=== PATIENT | male | born 1940 | race Caucasian/White ===

== ENCOUNTER 2019-01-21 09:53 | Inpatient (IN) ==
[2019-01-21 10:30] LABS: Hematocrit 37.2 % (42.0-52.0); Hemoglobin 13.3 gm/dL (13.5-18.0); Mean Cell Volume 85.1 fl (78-100); Mean Corpuscular Hemoglobin 30.4 pg (27-31); Mean Corpuscular Hgb Conc 35.8 g/dl (32-36); Mean Platelet Volume 9.8 fl (8-11.3); Neutrophil # 8.2 K/mm3 (1.3-6.0); Neutrophil % 74.7 % (42-75.0); Platelet Count 272 K/mm3 (150-450); Red Blood Count 4.37 M/mm3 (4.7-6.0); Red Cell Distribution Width 12.3 % (11.5-14.0)
--- NOTE | 2019-01-21 10:32 | ERNOTE ---
Abdominal HPI - Narrative Date of Service: 01/21/19 - General Chief Complaint: Abdominal Pain Time Seen by Provider: 01/21/19 10:24 Source: patient Exam Limitations: no limitations - Immun/Allergies/Home Medications Immunizatons: IMMUNIZATION HX Immunizations Up to Date No History of Influenza Vaccine No Hx Pneumococcal Vaccination No Allergies/Adverse Reactions: Allergies No Known Drug Allergies Allergy (Verified 03/12/16 09:45) Home Medications: HOME MEDICATIONS Meloxicam 15 mg PO DAILY 07/14/13 [Last Taken 07/08/14 21:00] Chlorthalidone [Hygroton] 25 mg PO DAILY 01/01/16 [Last Taken Unknown] HYDROcodone/ACETAMINOPHEN [Hydrocodon-Acetaminophn 10-325] 2 each PO BID 01/01/16 [Last Taken Unknown] Quinapril HCl [Accupril] 40 mg PO DAILY 01/01/16 [Last Taken Unknown] amLODIPine BESYLATE [Norvasc] 10 mg PO DAILY 01/01/16 [Last Taken Unknown] - Pain Score Pain Score #1 Pain Score: 0 - History of Present Illness Narrative: The patient is a 78 year old male who presents for persistent nausea and weakness which has been present for 1 week. There are associated symptoms of fatigue, near syncope and inability to eat. The patient denies pain. There are no alleviating factors. There are aggravating factors of oral intake. Previous treatments have included: none. The past medical history includes: HTN, DJD and sciatica. The social history is negative. The patient has had ill contacts at home from grandchildren with exposure to strep and influenza. Pat ient states he had bowel movement 2 days ago which was soft. Patient states he has been unable to eat due to foul taste of food and has only been able to tolerate sips of water or milk. Review of Systems - Review of Systems Constitutional: Present: chills, fatigue. Absent: fever EYE: Present: no symptoms reported ENT: Present: sore throat. Absent: ear pain, nasal drainage Respiratory: Present: no symptoms reported. Absent: shortness of breath, cough Cardiology: Present: no symptoms reported. Absent: chest pain Gastrointestinal/Abdominal: Present: nausea, eating less, drinking less. Absent: vomiting, diarrhea, abdominal pain Genitourinary: Present: decreased urinary output. Absent: dysuria Musculoskeletal: Present: no symptoms reported Skin: Present: no symptoms reported. Absent: rash Neurological: Present: headache, dizziness/light-headedness Endocrine: Present: no symptoms reported All Other Systems: All systems neg except as marked Medical History (Last Reviewed 01/21/19 @ 12:28 by MARY ELLEN Ray) Degenerative joint disease (DJD) of lumbar spine Hypertension Sciatic leg pain Surgical History: Surgical History (Last Reviewed 01/21/19 @ 12:28 by MARY ELLEN Ray) H/O hernia repair Social History: Preferred Language Ivorian Do you have any mosque or No cultural preference? Smoking Status Never smoker Have you smoked in the past 12 No months Do you dip or chew tobacco No Psych History No pertinent hx Drug Use none No Social History Section defined Physical Exam - Physical Exam General Appearance: Present: wd/wn, alert, mild distress, other - malaised Head Exam: Present: normal inspection, no evidence of injury Eye Exam: Normal inspection: bilateral, PERRL: bilateral Ears, Nose, Throat: Present: normal ENT inspection, pharyngeal erythema. Absent: pharyngeal swelling Neck: Present: normal inspection, nontender Respiratory: Present: no respiratory distress, normal breath sounds, no accessory muscle use, lungs clear Cardiovascular/Chest: Present: no murmur, tachycardia Gastrointestinal/Abdominal: Present: nontender, nondistended, soft, no organomegaly, abnormal bowel sounds - hypoactive Extremity Exam: Present: no edema Neurological Exam: Present: alert, oriented, normal mood/affect, no motor/sensory deficits Skin Exam: Present: normal color, warm/dry Progress - Date and Time Seen: Date and Time: 01/21/19 14:06 Case discussed with and will admit for acute with hyponatremia, hypokalemia and nausea. - Results and Orders Patient's Lab Results:: I have reviewed the patient's lab results. - Vital Signs Patient's Vital Signs:: I have reviewed the patient's vital signs. Vital Signs: Vital Signs 01/21/19 10:01 Temperature 36.8 C Pulse Rate 100 Respiratory Rate 18 Blood Pressure 121/81 O2 Sat by Pulse Oximetry 95 - EKG EKG #1 EKG: NSR EKG read: Reviewed by me - X-Ray X-Ray #1 X-Ray: chest Interpretation: Reviewed by me X-ray Comments: No acute cardiopulmonary abnormalities, chronic fibrotic changes. X-Ray #2 X-Ray: abdomen Interpretation: Reviewed by me X-ray Comments: Abnormal bowel gas pattern with dilated bowel loops. Concern for bowel obstruction. - CT/Ultrasound CT/Ultrasound Narrative: IMPRESSION: 1. No acute intra-abdominal or pelvic process Electronically signed by Lexa Geronimo M.D.. - Progress/Reassessment Chief Complaint: Abdominal Pain Departure Clinical Impression: Hyponatremia, Hypokalemia, Nausea - Departure Disposition: Still a patient Condition: Good
[2019-01-21 10:47] LABS: Albumin * 3.5 gm/dl (3.4-5.0); Anion Gap 13.2 mmol/L (6.8-13.8); Bilirubin, Total 0.5 mg/dL (0.0-1.1); CRP 1.1 mg/dL (0.0-0.9); Ca. Corrected For Albumin 9.3 mg/dL (8.4-10.2); Calcium * 9.2 mg/dL (7.9-10.9); Carbon Dioxide 26.8 mmol/L (24-32.6); Total Protein 7.6 gm/dL (6.2-8.2)
[2019-01-21] MEDS ORDERED: NORMAL SALINE 1,000 ML IV ONE (10:50)
[2019-01-21] MEDS: POTASSIUM CHLORIDE IN WATER 100 ML IV SCH ×4 (11:15→16:04)
[2019-01-21] MEDS ORDERED: DIATRIZOATE MEGLUMINE, SODIUM 30 ML BTL PO ONE (11:26)
[2019-01-21] MEDS ORDERED: ONDANSETRON HCL/PF 2 MG/ML VIAL IV ONE (12:16)
[2019-01-21] MEDS: MORPHINE SULFATE 2 MG/ML DISP.SYRIN IV ONE ×2 (12:31→15:02)
[2019-01-21 14:27] LABS: Anion Gap 11.4 mmol/L (6.8-13.8); BUN/Creatinine Ratio 15.4 (9.0-21.6); Calcium * 8.9 mg/dL (7.9-10.9); Carbon Dioxide 27.9 mmol/L (24-32.6); Potassium 3.3 mmol/L (3.4-4.6)
[2019-01-21] MEDS ORDERED: MORPHINE SULFATE 2 MG/ML DISP.SYRIN IV ONE (14:49)
[2019-01-21] MEDS ORDERED: HYDROCODONE PO SCH (15:00)
[2019-01-21] MEDS ORDERED: [UNRECOGNIZED DRUG - OTHER] PO SCH (15:00)
[2019-01-21] MEDS ORDERED: ACETAMINOPHEN PO SCH (15:00)
[2019-01-21] MEDS: NORMAL SALINE 1,000 ML IV PRN (16:06)
--- NOTE | 2019-01-21 17:02 | HP ---
Chief Complaint - Chief Complaint Date of Service: 01/21/19 Time of Service: 16:59 Chief Complaint: dizziness, anorexia History of Present Illness: Patient with past medical history of hypertension presented to the ER after 2 weeks of dizziness and inability to maintain p.o. nutrition. He has been unable to tolerate much by mouth. He has had family members with influenza and strep, but he tested negative. Sodium was found to be 118 in the ED. He denies signs of infection, including no fevers, sore throat, chest pain shortness of breath, diarrhea, skin changes, dysuria. He does not drink alcohol. At the time of my exam, he has received a liter bolus, some potassium via IV, and maintenance normal saline. He reports feeling better than on admission, but still does not feel like he is at his baseline. Medical History (Last Reviewed 01/21/19 @ 15:27 by Natalie Root RN) Degenerative joint disease (DJD) of lumbar spine Hypertension Sciatic leg pain Surgical History: Surgical History (Last Reviewed 01/21/19 @ 15:27 by Natalie Root RN) H/O hernia repair Family History: Family History (Last Updated 01/21/19 @ 14:41 by Natalie Root RN) Mother Myocardial infarction Father Mouth cancer Brother Cirrhosis Brother Stomach cancer Social History: Patient Lives/Resources Home Utilized Preferred Language Icelandic Do you have any rastafari or No cultural preference? Smoking Status Never smoker Have you smoked in the past 12 No months Do you dip or chew tobacco No Psych History No pertinent hx Drug Use none No Social History Section defined Review Of Systems (GEN) - Review of Systems Generalized/Overall Review: Absent: Fever Respiratory: Absent: Cough, Shortness of Breath, Wheezing Cardiac: Absent: Chest Pain, Edema Abdominal: Present: Nausea. Absent: Vomiting, Diarrhea Genitourinary: Absent: Dysuria Neurological: Present: Weakness. Absent: Seizure Skin: Absent: Rash Immunizations: IMMUNIZATION HX Immunizations Up to Date No History of Influenza Vaccine No Hx Pneumococcal Vaccination No Allergies/Adverse Reactions: Allergies Allergy/AdvReac Type Severity Reaction Status Date / Time No Known Drug Allergies Allergy Verified 03/12/16 09:45 Home Medications: HOME MEDICATIONS Meloxicam 15 mg PO DAILY 07/14/13 [Last Taken 07/08/14 21:00] Chlorthalidone [Hygroton] 25 mg PO DAILY 01/01/16 [Last Taken Unknown] HYDROcodone/ACETAMINOPHEN [Hydrocodon-Acetaminophn 10325] 2 each PO BID 01/01/16 [Last Taken Unknown] Quinapril HCl [Accupril] 40 mg PO DAILY 01/01/16 [Last Taken Unknown] amLODIPine BESYLATE [Norvasc] 10 mg PO DAILY 01/01/16 [Last Taken Unknown] Exam - Exam Vital Signs: Vital Signs - Last Taken Temp 37 C 01/21/19 14:27 Pulse 84 01/21/19 14:53 Resp 16 01/21/19 14:27 BP 138/55 01/21/19 14:27 Pulse Ox 96 01/21/19 14:27 Constitutional: Present: Alert, Oriented x3, Cooperative, Elderly ENT Exam: Present: hard of hearing, dry mucous membranes Respiratory: Present: lungs clear, no respiratory distress Cardiovascular/Chest: Present: regular rate, rhythm, no murmur Abdomen: Present: soft, nondistended Extremity: Absent: lower extremity edema Neurologic: Present: normal mood/affect Eye contact: Present: cooperative Diagnostic Studies: Abnormal Lab Results 01/21/19 01/21/19 01/21/19 Range/Units 10:23 10:23 10:23 WBC 11.0 H (4.0-10.5) K/mm3 RBC 4.37 L (4.7-6.0) M/mm3 Hgb 13.3 L (13.5-18.0) gm/dL Hct 37.2 L (42.0-52.0) % Immature Gran % (Auto) 2.80 H (0.001-0.429) % Immature Gran # (Auto) 0.31 H (0.000-0.0310) K/mm3 Lymphocytes % 12.3 L (20-51) % Monocytes % 9.2 H (0.0-9) % Neutrophils # 8.2 H (1.3-6.0) K/mm3 Lymphocytes # 1.35 L (1.5-3.5) k/mm3 Sodium 118 L* D (132-142) mmol/L Plasma Sodium 119 L* (130-142) mmol/L Potassium 3.0 L (3.4-4.6) mmol/L Chloride 81 L (97-106) mmol/L Est GFR (Non-Af Amer) 57 L D (60-130) mL/min Random Glucose 135 H (70-110) mg/dL C-Reactive Prot, Quant 1.1 H (0.0-0.9) mg/dL 01/21/19 Range/Units 14:15 WBC (4.0-10.5) K/mm3 RBC (4.7-6.0) M/mm3 Hgb (13.5-18.0) gm/dL Hct (42.0-52.0) % Immature Gran % (Auto) (0.001-0.429) % Immature Gran # (Auto) (0.000-0.0310) K/mm3 Lymphocytes % (20-51) % Monocytes % (0.0-9) % Neutrophils # (1.3-6.0) K/mm3 Lymphocytes # (1.5-3.5) k/mm3 Sodium 119 L (132-142) mmol/L Plasma Sodium 119 L* (130-142) mmol/L Potassium 3.3 L (3.4-4.6) mmol/L Chloride 83 L (97-106) mmol/L Est GFR (Non-Af Amer) (60-130) mL/min Random Glucose 125 H (70-110) mg/dL C-Reactive Prot, Quant (0.0-0.9) mg/dL Laboratory Results WBC 11.0 K/mm3 (4.0-10.5) H 01/21/19 10:23 RBC 4.37 M/mm3 (4.7-6.0) L 01/21/19 10:23 Hgb 13.3 gm/dL (13.5-18.0) L 01/21/19 10:23 Hct 37.2 % (42.0-52.0) L 01/21/19 10:23 MCV 85.1 fl (78-100) 01/21/19 10:23 MCH 30.4 pg (27-31) 01/21/19 10:23 MCHC 35.8 g/dl (32-36) 01/21/19 10:23 RDW 12.3 % (11.5-14.0) 01/21/19 10:23 Plt Count 272 K/mm3 (150-450) 01/21/19 10:23 MPV 9.8 fl (8-11.3) 01/21/19 10:23 Immature Gran % (Auto) 2.80 % (0.001-0.429) H 01/21/19 10:23 Immature Gran # (Auto) 0.31 K/mm3 (0.000-0.0310) H 01/21/19 10:23 Neutrophils % 74.7 % (42-75.0) 01/21/19 10:23 Lymphocytes % 12.3 % (20-51) L 01/21/19 10:23 Monocytes % 9.2 % (0.0-9) H 01/21/19 10:23 Eosinophils % 0.5 % (0.0-3.0) 01/21/19 10:23 Basophils % 0.5 % (0.0-1.0) 01/21/19 10:23 Nucleated RBC % 0.0 k/mm3 (0-1) 01/21/19 10:23 Neutrophils # 8.2 K/mm3 (1.3-6.0) H 01/21/19 10:23 Lymphocytes # 1.35 k/mm3 (1.5-3.5) L 01/21/19 10:23 Monocytes # 1.0 k/mm3 (0.0-1.0) 01/21/19 10:23 Eosinophils # 0.1 k/mm3 (0.0-0.7) 01/21/19 10:23 Absolute Basophils 0.1 k/mm3 (0.0-0.1) 01/21/19 10:23 Sodium 119 mmol/L (132-142) L 01/21/19 14:15 Plasma Sodium 119 mmol/L (130-142) L* 01/21/19 14:15 Potassium 3.3 mmol/L (3.4-4.6) L 01/21/19 14:15 Chloride 83 mmol/L (97-106) L 01/21/19 14:15 Carbon Dioxide 27.9 mmol/L (24-32.6) 01/21/19 14:15 Anion Gap 11.4 mmol/L (6.8-13.8) 01/21/19 14:15 BUN 19 mg/dL (6-23) 01/21/19 14:15 Creatinine 1.23 mg/dL (0.4-1.4) 01/21/19 14:15 Est GFR (Non-Af Amer) 60 mL/min (60-130) 01/21/19 14:15 BUN/Creatinine Ratio 15.4 (9.0-21.6) 01/21/19 14:15 Random Glucose 125 mg/dL (70-110) H 01/21/19 14:15 Calcium 8.9 mg/dL (7.9-10.9) 01/21/19 14:15 Calcium Adj for Albumin 9.3 mg/dL (8.4-10.2) 01/21/19 10:23 Total Bilirubin 0.5 mg/dL (0.0-1.1) 01/21/19 10:23 AST 40 U/L (0-48) 01/21/19 10:23 ALT 25 U/L (19-67) 01/21/19 10:23 Alkaline Phosphatase 95 U/L (50-170) 01/21/19 10:23 C-Reactive Prot, Quant 1.1 mg/dL (0.0-0.9) H 01/21/19 10:23 Total Protein 7.6 gm/dL (6.2-8.2) 01/21/19 10:23 Albumin 3.5 gm/dl (3.4-5.0) 01/21/19 10:23 Amylase 67 U/L (25-115) 01/21/19 10:23 Lipase 207 U/L (73-393) 01/21/19 10:23 Group A Strep Rapid Negative (NEGATIVE) 01/21/19 10:39 Assessment/Plan - Assessment/Plan (1) Hyponatremia Assessment: Admission sodium of 118. Last sodium check was 133 back in February 2018. He received a liter of normal saline, and recheck sodium was 119. He is asymptomatic, so will continue normal saline and check BMPs every 6 hours. The goal will be to correct no more than 8 mmol/L in 24 hours to avoid central pontine myelinolysis. He has not been able to maintain p.o. intake for approximately 2 weeks, which is likely the source of his hyponatremia. He takes chlorthalidone at baseline, which could contribute to hyponatremia. We will hold this and continue to watch his blood pressure. Serum osmolality pending to help determine volemic status. He does appear a bit dry on exam, with dry mucous membranes. Problem: Acute (2) Hypokalemia Assessment: Admission potassium level 3.0, improved to 3.3 on recheck after being administered potassium chloride by IV. Likely secondary to his decreased p.o. intake. Problem: Acute (3) Hypertension Assessment: We will continue home amlodipine and enalapril. Blood pressure is currently appropriate at 138/55. Problem: Chronic
[2019-01-21] MEDS: oxyCODONE HCL 5 MG TABLET PO SCH ×2 (17:21→22:27)
[2019-01-21] MEDS: ACETAMINOPHEN 325 MG TABLET PO SCH ×2 (17:21→22:26)
[2019-01-21 20:48] LABS: Anion Gap 11.9 mmol/L (6.8-13.8); BUN/Creatinine Ratio 14.7 (9.0-21.6); Calcium * 8.5 mg/dL (7.9-10.9); Carbon Dioxide 26.4 mmol/L (24-32.6); Estimated Creat Clear 54.1; Potassium 3.3 mmol/L (3.4-4.6)
[2019-01-21] MEDS ORDERED: hydrOXYzine HCL 25 MG TABLET PO ONE (23:56)
[2019-01-22] MEDS: NORMAL SALINE 1,000 ML IV PRN ×2 (00:19→07:00)
[2019-01-22 02:59] LABS: Anion Gap 13.4 mmol/L (6.8-13.8); BUN/Creatinine Ratio 11.8 (9.0-21.6); Calcium * 8.7 mg/dL (7.9-10.9); Carbon Dioxide 23.2 mmol/L (24-32.6); Potassium 3.6 mmol/L (3.4-4.6)
[2019-01-22 08:33] LABS: Anion Gap 13.6 mmol/L (6.8-13.8); BUN/Creatinine Ratio 10.5 (9.0-21.6); Calcium * 9.4 mg/dL (7.9-10.9); Carbon Dioxide 25.9 mmol/L (24-32.6); Estimated Creat Clear 59.8; Potassium 3.5 mmol/L (3.4-4.6)
[2019-01-22] MEDS: oxyCODONE HCL 5 MG TABLET PO SCH (08:47)
[2019-01-22] MEDS: ACETAMINOPHEN 325 MG TABLET PO SCH (08:47)
[2019-01-22] MEDS ORDERED: amLODIPine BESYLATE 10 MG TABLET PO SCH (09:00)
[2019-01-22] MEDS ORDERED: MELOXICAM 15 MG TABLET PO SCH (09:00)
[2019-01-22] MEDS ORDERED: ENALAPRIL MALEATE 20 MG TABLET PO SCH (09:00)
--- NOTE | 2019-01-22 11:59 | DS ---
(1) Hyponatremia Problem: Resolved (2) Hypokalemia Problem: Resolved (3) Hypertension Problem: Chronic Description of Stay: Patient with past medical history of hypertension presented to the ER after 2 weeks of dizziness and inability to maintain p.o. nutrition. He has been unable to tolerate much by mouth. He has had family members with influenza and strep, but he tested negative. Sodium was found to be 118 in the ED. He denies signs of infection, including no fevers, sore throat, chest pain shortness of breath, diarrhea, skin changes, dysuria. He does not drink alcohol. He was given 0.9% NS, and q6h BMPs checked. He was not symptomatic of severe hyponatremia, denying headache, confusion, cramping, or seizures. His sodium increased appropriately over the next 12 hours. The morning after admission, he reported feeling "great," and was ready to leave the hospital. He was able to tolerate a diet. His chlorthalidone was held, as it may have contributed to the hyponatremia, however it was felt his presentation was largely due to decreased po intake for the past couple of weeks. He underwent a CT study in the ED, and developed some diarrhea. This was still present on the day of DC, but he stated it was improving. He did not have diarrhea prior to admission. Procedures Performed: none Results and Findings: Lab Pending Results 01/21/19 10:23: WBC 11.0 H, RBC 4.37 L, Hgb 13.3 L, Hct 37.2 L, MCV 85.1, MCH 30.4, MCHC 35.8, RDW 12.3, Plt Count 272, MPV 9.8, Immature Gran % (Auto) 2.80 H, Immature Gran # (Auto) 0.31 H, Neutrophils % 74.7, Lymphocytes % 12.3 L, Monocytes % 9.2 H, Eosinophils % 0.5, Basophils % 0.5, Nucleated RBC % 0.0, Neutrophils # 8.2 H, Lymphocytes # 1.35 L, Monocytes # 1.0, Eosinophils # 0.1, Absolute Basophils 0.1 01/21/19 10:23: Sodium 118 L* D, Plasma Sodium 119 L*, Potassium 3.0 L, Chloride 81 L, Carbon Dioxide 26.8, Anion Gap 13.2, BUN 23, Creatinine 1.28, Est GFR (Non-Af Amer) 57 L D, BUN/Creatinine Ratio 18.0, Random Glucose 135 H, Calcium 9.2, Calcium Adj for Albumin 9.3, Total Bilirubin 0.5, AST 40, ALT 25, Alkaline Phosphatase 95, Total Protein 7.6, Albumin 3.5 01/21/19 10:23: C-Reactive Prot, Quant 1.1 H, Amylase 67, Lipase 207 01/21/19 10:39: Group A Strep Rapid Negative 01/21/19 14:15: Sodium 119 L, Plasma Sodium 119 L*, Potassium 3.3 L, Chloride 83 L, Carbon Dioxide 27.9, Anion Gap 11.4, BUN 19, Creatinine 1.23, Est GFR (Non-Af Amer) 60, BUN/Creatinine Ratio 15.4, Random Glucose 125 H, Calcium 8.9 01/21/19 20:30: Sodium 122 L, Plasma Sodium 122 L, Potassium 3.3 L, Chloride 87 L, Carbon Dioxide 26.4, Anion Gap 11.9, BUN 17, Creatinine 1.16, Est GFR (Non-Af Amer) 64, BUN/Creatinine Ratio 14.7, Random Glucose 112 H, Calcium 8.5 01/22/19 02:40: Sodium 126 L, Plasma Sodium 126 L, Potassium 3.6, Chloride 93 L, Carbon Dioxide 23.2 L, Anion Gap 13.4, BUN 13, Creatinine 1.10, Est GFR (Non-Af Amer) 68, BUN/Creatinine Ratio 11.8, Random Glucose 102, Calcium 8.7 01/22/19 08:19: Sodium 133, Plasma Sodium 133, Potassium 3.5, Chloride 97, Carbon Dioxide 25.9, Anion Gap 13.6, BUN 11, Creatinine 1.05, Est GFR (Non-Af Amer) 72, BUN/Creatinine Ratio 10.5, Random Glucose 107, Calcium 9.4 Discharge Location: Home Disposition: Home self-care Condition: Good Discharge Activity: Activity as tolerated Discharge Diet: General/regular food Referrals: Pedro Luis Mercado MD [Primary Care Provider] - One Week (Please schedule for follow up within the next week) Complete Home Medications List: Complete Home Medication List: Meloxicam 15 mg PO DAILY 07/14/13 Chlorthalidone [Hygroton] 25 mg PO DAILY 01/01/16 HYDROcodone/ACETAMINOPHEN [Hydrocodone-Acetamin 10-325 mg] 2 each PO BID 01/01/16 Quinapril HCl [Accupril] 40 mg PO DAILY 01/01/16 amLODIPine BESYLATE [Norvasc] 10 mg PO DAILY 01/01/16 Acetaminophen [Tylenol] 325 mg PO BID tablet 01/22/19
[2019-01-22 14:16] VITALS: BP 113/64
== END 2019-01-22 14:30 | disposition home or self-care (01) | DRG 641 ==
LOC: ER 09:53 → MS 13:58
PROVIDERS: ADMIT Family Medicine; ATTEND Family Medicine
CPT/HCPCS: 36415; 71020; 71046; 74019; 74020; 74177; 80048; 80053; 82150; 83690; 83930; 85025; 86140; 87081; 87430; 93005; 96361; 96365; 96366; 96375; 99285; J2405; Q9967